=== PATIENT | female | born 1945 | race Caucasian/White ===

== ENCOUNTER 2016-09-05 10:51 | Emergency (ER) | payer MEDICARE ==
[2016-09-05 11:04] VITALS: BP 127/81
[2016-09-05 11:26] LABS: Urine Bilirubin 1 mg/dl (NEGATIVE); Urine Blood 250 /ul (NEGATIVE); Urine Ketone Negative (NEGATIVE); Urine Nitrite Negative (NEGATIVE); Urine Protein 100 mg/dL (NEGATIVE); Urine Urobilinogen >=8.0 EU/dl (NORMAL)
[2016-09-05 11:36] LABS: Urine Appearance Clear; Urine Bacteria TRACE; Urine Color Dark Yellow
[2016-09-05 11:46] LABS: Hematocrit 39.5 % (37.0-47.0); Hemoglobin 13.6 gm/dL (12.5-16.0); Mean Corpuscular Hemoglobin 34.1 pg (27-31); Mean Corpuscular Hgb Conc 34.4 g/dl (32-36); Neutrophil # 9.4 K/mm3 (1.3-6.0); Neutrophil % 76.9 % (42-75.0); Platelet Count 216 K/mm3 (150-450); Red Blood Count 3.99 M/mm3 (4.2-5.4); Red Cell Distribution Width 12.5 % (11.5-14.0); White Blood Count 12.3 K/mm3 (4.0-10.5)
[2016-09-05 12:06] LABS: Albumin * 2.9 gm/dl (3.4-5.0); BUN/Creatinine Ratio 12.4 (9.0-21.6); Bilirubin, Total 0.8 mg/dL (0.0-1.1); Ca. Corrected For Albumin 9.1 mg/dL (8.4-10.2); Calcium * 8.5 mg/dL (7.9-10.9); Carbon Dioxide 27.9 mmol/L (24-32.6); Potassium 3.9 mmol/L (3.4-4.6); Total Protein 7.3 gm/dL (6.2-8.2)
--- NOTE | 2016-09-05 12:32 | ERNOTE ---
Medical Problem HPI - Narrative Date of Service: 09/05/16 - General Chief Complaint: General Assessment Time Seen by Provider: 09/05/16 12:00 Source: patient Exam Limitations: no limitations - Immun/Allergies/Home Medications Immunizations: IMMUNIZATION HX History of Influenza Vaccine No Hx Pneumococcal Vaccination No Allergies/Adverse Reactions: Allergies codeine Adverse Reaction (Mild, Verified 09/05/16 11:03) FELT LIKE SKIN CRAWLING Home Medications: HOME MEDICATIONS Omeprazole 20 mg PO DAILY 12/11/15 [Last Taken Unknown] Sertraline HCl [Zoloft] 50 mg PO DAILY 12/11/15 [Last Taken Unknown] - History of Present History Narrative: Pt. comes in with c/o L flank pain LUQ and LLQ abd pain, dysuria, chest pain and SOB for two days. Pt. states that she took a nitro yesterday of her husbands and her chest pain and SOB resolved after 30 minutes of pain 5 minutes after taking the nitro. Pt. also states that her pain is constant in her abdomen and back and occasionally moves up and down but does not change with any factors. Review of Systems - Review of Systems Constitutional: Present: no symptoms reported. Absent: recent illness, fever, chills, weakness, fatigue, malaise EYE: Present: no symptoms reported ENT: Present: no symptoms reported Respiratory: Present: shortness of breath Cardiology: Present: chest pain. Absent: palpitations, syncope, edema Gastrointestinal/Abdominal: Present: nausea, abdominal pain - LUQ LLQ. Absent: vomiting, diarrhea Genitourinary: Present: pain - L flank. Absent: frequency, decreased urinary output Musculoskeletal: Present: back pain - L flank. Absent: neck pain, joint pain Skin: Present: no symptoms reported. Absent: rash, change in color Neurological: Present: no symptoms reported All Other Systems: All systems neg except as marked - Patient's Past Medical History Patient History - Medical: Anxiety, Depression, GERD Patient History - Cardiac/Respiratory: No pertinent hx Patient History - Cancer: No Hx of Cancer Patient History - Surgical Procedures: Appendectomy, Tubal Ligation, Other Patient History - Other: None - Family History Brother Family History - Medical: , Renal Disease Family History - Cardiac/Respiratory: Valvular Heart Disease - Social History Living Situations: home Abuse History: No History of abuse Psych History: Hx of Anxiety, Hx of Depression Smoking Status: Current every day smoker Alcohol Use: occasionally Drug Use: none - Immunizations Hx Pneumococcal Vaccination: No History of Influenza Vaccine: No Physical Exam - Physical Exam General Appearance: Present: wd/wn, alert, no apparent distress Eye Exam: Normal inspection: bilateral, PERRL: bilateral, EOMI: bilateral Ears, Nose, Throat: Present: normal ENT inspection, normal pharynx Neck: Present: normal inspection, nontender. Absent: lymphadenopathy (R), lymphadenopathy (L) Respiratory: Present: no respiratory distress, normal breath sounds, no accessory muscle use, chest nontender, lungs clear Cardiovascular/Chest: Present: regular rate, rhythm, no murmur, normal peripheral pulses Gastrointestinal/Abdominal: Present: normal bowel sounds, nondistended, tenderness - LUQ Back Exam: Present: normal range of motion, no vertebral tenderness, CVA tenderness (L) Extremity Exam: Present: normal inspection, non-tender, normal range of motion, no edema Neurological Exam: Present: alert, oriented, normal mood/affect, no motor/ sensory deficits Skin Exam: Present: normal color, warm/dry. Absent: pallor, skin rash ED Progress - Date and Time Seen: Date and Time: 09/05/16 13:30 Pt. left room and did not return without speaking to anyone and no one seems to know where she went. Feel pt. likely has stone but could also be having a cardiac issue. - Results and Orders Patient's Lab Results:: I have reviewed the patient's lab results. - Vital Signs Patient's Vital Signs:: I have reviewed the patient's vital signs. Vital Signs: Vital Signs 09/05/16 10:58 Temperature 36.2 C L Pulse Rate 105 H Respiratory 12 Rate Blood Pressure 127/81 O2 Sat by Pulse 94 Oximetry - Progress/Reassessment Chief Complaint: General Assessment Departure - Departure Clinical Impression: Kidney stone on left side Chest pain Qualifiers: Chest pain type: unspecified Qualified Code(s): R07.9 - Chest pain, unspecified Disposition: Against medical advice Referrals: Emeli Rizzo DO [Primary Care Provider] -
== END 2016-09-05 12:45 | disposition left against medical advice (07) ==
LOC: ER 10:51
DX: N20.0 Calculus of kidney (principal); R07.9 Chest pain, unspecified; Z72.0 Tobacco use; Z53.29 Procedure and treatment not carried out because of patient's decision for other reasons

== ENCOUNTER 2016-09-06 07:55 | Emergency (ER) | payer MEDICARE ==
[2016-09-06] MEDS ORDERED: DIATRIZOATE MEGLU/DIATRIZO SOD 30 ML BTL PO ONE (08:21)
[2016-09-06] MEDS ORDERED: DIATRIZOATE MEGLU/DIATRIZO SOD 30 ML BTL ONE (08:24)
--- NOTE | 2016-09-06 08:35 | ERNOTE ---
Abdominal HPI - General Chief Complaint: Abdominal Pain Time Seen by Provider: 09/06/16 08:08 Source: patient Exam Limitations: no limitations - Immun/Allergies/Home Medications Immunizatons: IMMUNIZATION HX Immunizations Up to Date Yes History of Influenza Vaccine No Hx Pneumococcal Vaccination No Allergies/Adverse Reactions: Allergies codeine Adverse Reaction (Mild, Verified 09/06/16 08:05) FELT LIKE SKIN CRAWLING Home Medications: HOME MEDICATIONS Omeprazole 20 mg PO DAILY 12/11/15 [Last Taken Unknown] Sertraline HCl [Zoloft] 50 mg PO DAILY 12/11/15 [Last Taken Unknown] Ciprofloxacin HCl [Cipro] 500 mg PO BID #20 tab 09/06/16 [Last Taken Unknown] - History of Present Illness Narrative: Patient is here as she has not been feeling well for about a week and has multiple complaints. She had urinary frequency for a couple of days that resolved with taken azo, low grade temperature on and off. She also had left sided abdominal pain that waxes and wanes but never completely resolves, currently at 2/10. She points to the left flank and lower abdomen, nausea, vomited once last week, no diarrhea. There are no aggravating or aviating factors. Two days ago after walking up some stairs she had one episode of chest pain and shortness of breath that resolved with taking her husbands nitro. She never had similar symptoms or chest pain since. She never had similar abdominal pain, had appendectomy, had a colonoscopy, not sure what the results of the latter one were. Date (Duration): 08/30/16 Timing: intermittent Quality: moderate Activities at Onset: none Modifying Factors - (Improves): Absent: rest Modifying Factors - (Worsens): Absent: breathing, coughing, eating, lying down, movement Prior Abdominal Problems: Present: none Prior Treatment: Present: recently seen - seen yesterday but left AMA when she felt too cold in the room. Absent: recently hospitalized, currently on antibiotics Review of Systems - Review of Systems Constitutional: Present: fever, chills, fatigue ENT: Absent: nose congestion, sore throat Respiratory: Present: See HPI, shortness of breath. Absent: cough Cardiology: Present: See HPI, chest pain Gastrointestinal/Abdominal: Present: See HPI, nausea, abdominal pain Genitourinary: Present: no symptoms reported Musculoskeletal: Absent: back pain Neurological: Present: headache - today - Patient's Past Medical History Patient History - Medical: Anxiety, Depression, GERD Patient History - Cardiac/Respiratory: No pertinent hx Patient History - Cancer: No Hx of Cancer Patient History - Surgical Procedures: Appendectomy, Colonoscopy, Tubal Ligation , Other Patient History - Other: None - Family History Brother Family History - Medical: , Renal Disease Family History - Cardiac/Respiratory: Valvular Heart Disease - Social History Living Situations: home Abuse History: No History of abuse Psych History: Hx of Anxiety, Hx of Depression Smoking Status: Current every day smoker Cigarettes Packs Per Day: 1 Have you smoked in the past 12 months: Yes Alcohol Use: occasionally Drug Use: none - Immunizations Immunizations Up to Date: Yes Hx Pneumococcal Vaccination: No History of Influenza Vaccine: No Physical Exam - Physical Exam General Appearance: Present: wd/wn, alert, no apparent distress Ears, Nose, Throat: Present: normal pharynx Respiratory: Present: no respiratory distress, no accessory muscle use, chest nontender, lungs clear, decreased breath sounds Cardiovascular/Chest: Present: no murmur, tachycardia Gastrointestinal/Abdominal: Present: normal bowel sounds, nondistended, soft, tenderness - left mid and lower abdomen Back Exam: Present: normal inspection, no CVA tenderness, no vertebral tenderness Neurological Exam: Present: alert, oriented, normal mood/affect Skin Exam: Present: normal color, warm/dry ED Progress - Results and Orders Patient's Lab Results:: I have reviewed the patient's lab results. - Vital Signs Patient's Vital Signs:: I have reviewed the patient's vital signs. Vital Signs: Vital Signs 09/06/16 08:00 Temperature 37.1 C Pulse Rate 101 H Respiratory 16 Rate Blood Pressure 129/83 O2 Sat by Pulse 99 Oximetry - CT/Ultrasound CT/Ultrasound Narrative: CT abdomen/pelvis: left sided pyelonephritis, no signs of obstruction, diverticulosis - Progress/Reassessment Chief Complaint: Abdominal Pain Progress Note-Subjective: 09/06/16 08:34 colonoscopy from 11/2015 showed hyperplastic polyps and diverticulosis 09/06/16 11:33 discussed results with patient, minimal pain, no vomiting, will treat as out patient Departure - Departure Clinical Impression: Pyelonephritis Disposition: Home self-care Condition: Good Instructions: Pyelonephritis, Adult, [id number] Additional Instructions: call your doctor for follow up Referrals: Emeli Rizzo DO [Primary Care Provider] - Prescriptions: Ciprofloxacin HCl [Cipro] 500 mg PO BID #20 tab
[2016-09-06 08:52] LABS: Hematocrit 39.8 % (37.0-47.0); Hemoglobin 13.4 gm/dL (12.5-16.0); Mean Cell Volume 101.3 fl (78-100); Mean Corpuscular Hemoglobin 34.1 pg (27-31); Mean Corpuscular Hgb Conc 33.7 g/dl (32-36); Mean Platelet Volume 10.3 fl (6.0-9.5); Neutrophil # 7.7 K/mm3 (1.3-6.0); Neutrophil % 73.4 % (42-75.0); Platelet Count 220 K/mm3 (150-450); Red Blood Count 3.93 M/mm3 (4.2-5.4); Red Cell Distribution Width 12.3 % (11.5-14.0); White Blood Count 10.5 K/mm3 (4.0-10.5)
[2016-09-06 09:05] LABS: Albumin * 2.9 gm/dl (3.4-5.0); BUN/Creatinine Ratio 13.2 (9.0-21.6); Bilirubin, Total 0.7 mg/dL (0.0-1.1); Ca. Corrected For Albumin 9.2 mg/dL (8.4-10.2); Calcium * 8.6 mg/dL (7.9-10.9); Potassium 3.7 mmol/L (3.4-4.6); Total Protein 7.6 gm/dL (6.2-8.2)
[2016-09-06 09:12] LABS: Anion Gap 14.1 mmol/L (6.8-13.8); Carbon Dioxide 26.6 mmol/L (24-32.6)
[2016-09-06 11:14] VITALS: BP 125/85
[2016-09-06] MEDS ORDERED: CIPROFLOXACIN HCL 250 MG TABLET PO ONE (11:31)
[2016-09-06] MEDS ORDERED: CIPROFLOXACIN HCL 250 MG TABLET ONE (11:32)
== END 2016-09-06 11:39 | disposition home or self-care (01) ==
LOC: ER 07:55
DX: N10 Acute pyelonephritis (principal); F17.200 Nicotine dependence, unspecified, uncomplicated